=== PATIENT | male | born 1990 | race American Indian/Alaskan Native ===

== ENCOUNTER 2017-03-20 17:59 | Emergency (ER) | payer MEDICAID, OTHER ==
[2017-03-20 18:04] VITALS: BP 130/69
--- NOTE | 2017-03-20 19:19 | EDM.PDOC ---
ED HPI GENERAL MEDICAL PROBLEM - General Chief Complaint: Upper Extremity Injury/Pain Stated Complaint: SHOULDER PAINS, [id number] Time Seen by Provider: 03/20/17 19:00 Source of Information: Reports: Patient History Limitations: Reports: No Limitations - History of Present Illness INITIAL COMMENTS - FREE TEXT/NARRATIVE: c/o pain to right shoulder, Noted playing football around 5pm and fell on to ground and felt pop in right shoulder and pain with any movement. Jammed right middle finger, but is not concerned with that, just stiff now. Right Shoulder Pain Score (Numeric/FACES): 8 - Related Data Allergies Allergy/AdvReac Type Severity Reaction Status Date / Time penicillin G Allergy Hives Verified 03/20/17 18:06 Home Meds: Home Meds Multivit-Min/Iron Fum/Folic AC [Ztlds-[id number]-Cdhxfflm Tablet] 1 tab PO DAILY [History] valACYclovir [Valtrex] 1 tab PO BID 03/20/17 [History] Past Medical History - Past Health History Medical/Surgical History: Denies Medical/Surgical History HEENT History: Reports: Impaired Vision Gastrointestinal History: Reports: GERD Genitourinary History: Reports: STD Social & Family History - Tobacco Use Smoking Status *Q: Former Smoker Years of Tobacco use: 7 Used Tobacco, but Quit: Yes Month Tobacco Last Used: October Second Hand Smoke Exposure: No - Caffeine Use Caffeine Use: Reports: Soda - Alcohol Use Days Per Week of Alcohol Use: 1 Number of Drinks Per Day: 6 Total Drinks Per Week: 6 Date of Last Drink: 03/13/17 - Recreational Drug Use Recreational Drug Use: No Review of Systems - Review of Systems Review Of Systems: See Below Constitutional: Reports: No Symptoms Eyes: Reports: No Symptoms Ears: Reports: No Symptoms Nose: Reports: No Symptoms Mouth/Throat: Reports: No Symptoms Cardiovascular: Reports: No Symptoms GI/Abdominal: Reports: No Symptoms Musculoskeletal: Reports: Joint Pain (right shoulder) Skin: Reports: No Symptoms Neurological: Reports: No Symptoms. Denies: Numbness, Paresthesia ED EXAM, GENERAL - Physical Exam Exam: See Below Exam Limited By: No Limitations General Appearance: Alert, Mild Distress Eye Exam: Bilateral Eye: EOMI Ears: Normal External Exam Nose: Normal Inspection Throat/Mouth: Normal Inspection, Normal Oropharynx Neck: Normal Inspection. No: Tender Midline Respiratory/Chest: No Respiratory Distress, Lungs Clear, Normal Breath Sounds Cardiovascular: Normal Peripheral Pulses Extremities: Normal Inspection, Limited Range of Motion. No: Normal Range of Motion (Limited ROM due to pain, no bruising, No swelling), Mottled, Pallor, Redness Neurological: Alert, Oriented Skin Exam: Warm, Dry, Intact, Normal Color Course - Vital Signs Last Recorded V/S: Last Vital Signs Temp 98.8 F 03/20/17 18:03 Pulse 103 H 03/20/17 18:03 Resp 18 03/20/17 18:03 BP 130/69 03/20/17 18:03 Pulse Ox 97 03/20/17 18:03 - Orders/Labs/Meds Meds: Medications Discontinued Medications Generic Name Dose Route Start Last Admin Trade Name Sandee PRN Reason Stop Dose Admin Ibuprofen 800 mg 03/20/17 20:31 03/20/17 20:34 Motrin PO 03/20/17 20:32 800 mg ONETIME ONE Administration Departure - Departure Time of Disposition: 20:27 Disposition: Home, Self-Care 01 Condition: Good Clinical Impression: Right anterior shoulder pain - Discharge Information Instructions: Shoulder Pain, [id number] Referrals: Puneet Srivastava [Primary Care Provider] - Forms: ED Department Discharge Additional Instructions: sling for comfort for 2-3 days tylenol or ibuprofen for comfort ice to shoulder, clinic follow up if not improving in one week
[2017-03-20] MEDS ORDERED: Ibuprofen 800 MG Tab PO ONE (20:31)
== END 2017-03-20 20:36 | disposition home or self-care (01) ==
LOC: DL.ED 17:59
DX: M25.511 Pain in right shoulder (principal); K21.9 Gastro-esophageal reflux disease without esophagitis; Z87.891 Personal history of nicotine dependence; Z79.899 Other long term (current) drug therapy; Z88.0 Allergy status to penicillin; Y93.61 Activity, american tackle football
CPT/HCPCS: 73030; 99283; A9270; 99282